=== PATIENT | female | born 1985 | race Caucasian/White ===

== ENCOUNTER 2017-04-11 10:19 | Emergency (ER) | payer MEDICAID ==
[~2017-04-11] VITALS: Ht 157.5 cm; Wt 93.6 kg
[~2017-04-11 10:19] MED LIST: CLINDAMYCIN300 MG PO; IUD; LORTAB 5/500 501 TAB PO; SERTRALINE; ULTRAM50 MG PO
[2017-04-11 10:26] VITALS: BP 146/87; TEMP 97.9
[2017-04-11] MEDS ORDERED: GLUCOPHAGE500 MG/TAB PO (10:30)
[2017-04-11] MEDS ORDERED: PROCARDIA XL 3030 MG PO (10:30)
[2017-04-11 11:39] VITALS: PULSE 68
== END 2017-04-11 11:33 | disposition home or self-care (01) ==
LOC: COL.ER 10:19
DX: S43.402A Unspecified sprain of left shoulder joint, initial encounter (principal); F17.210 Nicotine dependence, cigarettes, uncomplicated; Z88.0 Allergy status to penicillin; Z88.8 Allergy status to other drugs, medicaments and biological substances; Z79.84 Long term (current) use of oral hypoglycemic drugs; X50.0XXA Overexertion from strenuous movement or load, initial encounter; Y92.009 Unspecified place in unspecified non-institutional (private) residence as the place of occurrence of the external cause

== ENCOUNTER 2018-09-02 06:45 | Day surgery (SDC) | payer MEDICAID ==
[~2018-09-02] VITALS: Ht 157.5 cm; Wt 100.9 kg
[~2018-09-02 06:45] MED LIST changes: +GLUCOPHAGE500 MG/TAB PO; +PROCARDIA XL 3030 MG PO
[2018-09-02 07:34] LABS: COLLECTION METHOD CLEAN CATCH
[2018-09-02 07:37] LABS: BASO % 0.3 % (0.0-2.0); EOS % 0.3 % (0-4.0); GRAN % 80.7 % (42.2-75.2); HEMATOCRIT 38.2 % (37.0-47.0); HEMOGLOBIN 12.2 g/dl (12.5-16.0); LYMPH # 1.3 (1.2-3.4); LYMPH % 11.9 % (20.0-51.0); MEAN CELL VOLUME 91 fl (80.0-100.0); MEAN CORPUSCULAR HEMOGLOBIN 29 pg (27.0-31.0); MEAN CORPUSCULAR HGB CONC 32 g/dl (33.0-37.0); MEAN PLATELET VOLUME 11.9 fl (7.4-10.4); MONO # 0.7 (0.1-0.6); MONO % 6.4 % (1.7-9.3); PLATELET COUNT 148 K/mm3 (130-400); RED BLOOD COUNT 4.21 M/mm3 (4.10-5.30); REDCELL DISTRIBUTION WIDTH-CV 13.7 % (11.5-14.5)
[2018-09-02 07:47] LABS: MUCOUS Present /lpf; PH 7 (5-8); SQUAMOUS EPITHELIAL 0-2 /hpf; URINE APPEARANCE Clear; URINE BACTERIA None Seen /hpf; URINE BILIRUBIN Negative (NEGATIVE); URINE BLOOD 2+ (NEGATIVE); URINE COLOR Yellow; URINE GLUCOSE 2+ (NEGATIVE); URINE KETONE Negative (NEGATIVE); URINE LEUKOCYTE ESTERASE 1+ (NEGATIVE); URINE NITRATE Negative (NEGATIVE); URINE PROTEIN(semi-quant) 1+ (NEGATIVE); URINE UROBILINOGEN >=4.0 mg/dL (NEGATIVE)
[2018-09-02 07:50] LABS: ALBUMIN 3.7 gm/dL (3.5-5.0); BILIRUBIN,TOTAL 0.3 mg/dL (0.0-1.0); CALCIUM 8.6 mg/dL (8.4-10.2); CREATININE, serum 0.53 (0.52-1.25); POTASSIUM 3.6 mmol/L (3.4-5.0); TOTAL PROTEIN 6.9 gm/dL (6.4-8.2)
[2018-09-02 08:07] LABS: C-REACTIVE PROTEIN 13.9 mg/dL (0.0-0.9)
[2018-09-02 10:36] VITALS: BP 146/75; PULSE 70; TEMP 98.4
[2018-09-02] MEDS ORDERED: LIPITOR 40MG TA40 MG PO (10:52)
[2018-09-02] MEDS ORDERED: COZAAR 50MG50 MG/TAB PO (10:53)
--- NOTE | 2018-09-02 11:23 | NUR ---
Contacted Dr. Olmstead for orders for pain meds. Patient comfortable at this time. Nicotine patch order. TORB.
[2018-09-02 16:20] VITALS: BP 172/85; PULSE 84; TEMP 98.6
--- NOTE | 2018-09-02 18:11 | NUR ---
Patient has done well throughout the day. Has requested pain medications throughout the day, given per orders. Dr. Olmstead in to see patient this afternoon. Patient diet advanced, is to be NPO at midnight. Fluids infusing via pump to right AC per orders. Straining urine. Denies further needs at this time. Will report off to slot shift supervisor.
[2018-09-02 19:40] VITALS: BP 156/71; PULSE 81; TEMP 99
[2018-09-02 23:51] VITALS: BP 137/63; PULSE 72; TEMP 99.6
[2018-09-03] VITALS (7 sets, daily range): BP systolic 141–164; BP diastolic 69–91; PULSE 54–89; TEMP 98.2–98.7
--- NOTE | 2018-09-03 00:38 | NUR ---
Upon arrival to the shift, patient stated she was nauseous and was having a lot of pain. PRN Morphine given. Order received from Dr. Olmstead for Phenergan 12.5 and to repeat dose if inital dose didn't work. Pain noted to reduce and patient denied nausea. Currently patient is sleeping with call light in reach. Urine is being strained. No stone noted as of yet.
--- NOTE | 2018-09-03 02:40 | NUR ---
Patient called and stated she was vomiting. Upon entering the room, patient noted to be resting with eyes closed. Small amount of sputum in the bucket at the bedside. Patient stated she had a really bad headache as well. PRN Zofran and Toradol given. Will continue to monitor patient.
--- NOTE | 2018-09-03 09:39 | NUR ---
Patient is going down for her procedure at this time. Consent signed and on chart. Her is following the patient down. Patient is going in her bed. Patient showered last night, washed up this morning and brushed her teeth. No other changes at this time.
--- NOTE | 2018-09-03 12:30 | NUR ---
Patient is back from surgery at this time. Minimal complaints of pain. Denies nausea. She is wanting to eat something and go home. She has voided once and has red tinged urine with one clot. Explained that can happen after this procedure but it should get better. Encouraged her to continue to drink water. Patients family is at bedside. No other changes at this time. Call light within reach.
[2018-09-03] MEDS ORDERED: NORCO 325 MG-51 TAB PO (13:11)
--- NOTE | 2018-09-03 13:11 | NUR ---
Pt in room crawling on the floor upon passing her room. Upon entering room a swathi was very frustrated as nobody was helping her. I asked what was needed. She stated that she lost the ball to her lip ring and couldn't find it. I unhooked her IV as she was half naked with only having pants on. She stated she wouldn't put a gown back on, so she put on a bra and shirt. During this time the swathi in the room went and sat in a chair. I assisted with looking for the ball to her lip ring, but was not able to find it. She stated that she dropped it when she was trying to insert it following surgery. No other needs at this time. Reported to STEPHEN Cummins the prior events.
[2018-09-03] MEDS ORDERED: PYRIDIUM 100MG100 MG PO (13:12)
--- NOTE | 2018-09-03 14:11 | NUR ---
Initial visit; Patient in 'Procedure,' her fiance thanked Day Worker for keeping Luz in her prayers.
--- NOTE | 2018-09-03 14:30 | NUR ---
Patient is discharging home. Discharge instructions discussed with patient. No questions verbalized. INT discontinued. Explained she has prescriptions to get filled when she leaves. Explianed when follow up is in [place]. Copies of discharge instructions sent with patient. All belongings packed up by . Patient is going to finish eating and than call for someone to take her down via wheel chair.
--- NOTE | 2018-09-03 14:49 | NUR ---
SW unable to meet with patient before discharge.
== END 2018-09-03 14:43 | disposition home or self-care (01) ==
LOC: COL.ER 06:45 → SURG 09:11 → SDCO 09:11 → COL.ER 09:11 → SURG 09-03 14:43 → SDCO 09-03 14:43
PROVIDERS: Family Medicine
DX: N13.2 Hydronephrosis with renal and ureteral calculous obstruction (principal); E11.9 Type 2 diabetes mellitus without complications; Z79.4 Long term (current) use of insulin; I10 Essential (primary) hypertension; E78.00 Pure hypercholesterolemia, unspecified; Z79.899 Other long term (current) drug therapy; Z88.0 Allergy status to penicillin; Z91.040 Latex allergy status; F17.210 Nicotine dependence, cigarettes, uncomplicated
CPT/HCPCS: A4216; C1769; C1894; J0360; J0690; J0696; J1100; J1885; J2270; J2405; J2550; J2704; J3010; J7030; Q9967